=== PATIENT | female | born 1965 | race Caucasian/White ===

== ENCOUNTER 2020-03-31 12:11 | Emergency (ER) | payer BC, OTHER ==
[~2020-03-31] VITALS: Ht 157.5 cm; Wt 45.4 kg
--- NOTE | 2020-03-31 12:39 | NUR ---
C/O ABD PAIN -UMBILICAL AREA; VOMITING; DIARRHEA. SX STARTED YESTERDAY, WORSENED EARLY THIS AM. TOOK PEPTO-BISMOL:"BUT I THREW IT UP". DENIES FEVER, COUGH. INTACT SENSE OF SMELL & TASTE. DAUGHTER IN ROOM.
--- NOTE | 2020-03-31 12:48 | NUR ---
CHART MISSING TRIAGE BP.
[2020-03-31 12:56] LABS: BASOPHILS # (AUTO) 0.01 x10^3/uL (0-0.1); BASOPHILS % (AUTO) 0 % (0-1); EOSINOPHILS % (AUTO) 0 % (1-7); LYMPHOCYTES # (AUTO) 1.18 x10^3/uL (1-3.4); LYMPHOCYTES % (AUTO) 8 % (22-44); MD NO; MEAN CORPUSCULAR HEMOGLOBIN 31.8 pg (27.0-34.8); MEAN CORPUSCULAR HGB CONC 32.5 g/dL (32.4-35.8); MEAN CORPUSCULAR VOLUME 98.1 fL (80-100); MONOCYTES # (AUTO) 0.15 x10^3/uL (0.2-0.8); MONOCYTES % (AUTO) 1 % (2-9); NEUTROPHILS # (AUTO) 12.71 x10^3/uL (1.8-6.8); NEUTROPHILS % (AUTO) 90 % (42-75); PLATELET COUNT 234 x10^3/uL (130-400); RED BLOOD COUNT 3.96 x10^6/uL (3.82-5.3); RED CELL DISTRIBUTION WIDTH 13.3 % (9.6-15.2)
[2020-03-31] MEDS ORDERED: MAALOX/HYOSCYAMINE/LIDOCAINE 45 ML BTL PO ONE (13:00)
[2020-03-31] MEDS ORDERED: SODIUM CHLORIDE FLUSH 10ML SYR IVF ONE (13:00)
[2020-03-31] MEDS ORDERED: FAMOTIDINE 20 MG/2 ML IVPush ONE (13:00)
[2020-03-31] MEDS ORDERED: ONDANSETRON 2MG/ML, 2ML IVPush ONE (13:00)
[2020-03-31] MEDS ORDERED: SODIUM CHLORIDE 0.9% 1,000ML IVBOLUS ONE (13:00)
--- NOTE | 2020-03-31 13:00 | NUR ---
María Elena davis in [facility] - 03/31/20 at 1300 by [facility]IL[facility] PT REQUESTING ADMISSION TO BEHAVIORAL HEALTH; WILL NOTIFY ERP.
[2020-03-31 13:07] LABS: ALANINE AMINOTRANSFERASE 18 U/L (12-78); ALBUMIN 4.2 g/dL (3.4-5.0); ANION GAP 7 mmol/L (5-15); CALCIUM 8.8 mg/dL (8.5-10.1); CHLORIDE 111 mmol/L (98-107)
[2020-03-31 13:12] LABS: ALKALINE PHOSPHATASE 70 U/L (45-117); BILIRUBIN,TOTAL 0.5 mg/dL (0.2-1.0); CREATININE 0.65 mg/dL (0.55-1.02); TOTAL PROTEIN 7.8 g/dL (6.4-8.2)
--- NOTE | 2020-03-31 13:34 | NUR ---
U/S DONE. U/S [facility] STATES PT IS IN THE BR.
[2020-03-31] MEDS ORDERED: MAALOX/HYOSCYAMINE/LIDOCAINE 45 ML BTL ONE (13:44)
[2020-03-31] MEDS ORDERED: ONDANSETRON 2MG/ML, 2ML ONE (13:44)
[2020-03-31] MEDS ORDERED: FAMOTIDINE 20 MG/2 ML ONE (13:44)
--- NOTE | 2020-03-31 13:51 | NUR ---
ZOFRAN, PEPCID, GI COCKTAIL GIVEN PER EMAR. NS INFUSING W-O. BEAR WARMER PROVIDED. EMESIS BAG W/ PT. CALL LIGHT W/IN REACH, SIDE RAIL UP X2, DAUTHER IN ROOM.
--- NOTE | 2020-03-31 14:48 | NUR ---
PT AMBULATORY TO & FROM [place] [facility] W/OUT INCIDENT; GAIT STEADY. VOIDED SPECIMEN PROVIED; CLEAR YELLOW. PO CHALLENGE INTITATED W/ WATER.
--- NOTE | 2020-03-31 14:57 | NUR ---
PT ABLE TO KEEP WATER DOWN. ERP WILL BE NOTIFIED.
[2020-03-31 15:25] VITALS: BP 131/53
== END 2020-03-31 15:35 | disposition home or self-care (01) ==
LOC: ED 13:00
DX: R11.2 Nausea with vomiting, unspecified (principal); R19.7 Diarrhea, unspecified; R10.84 Generalized abdominal pain; R10.9 Unspecified abdominal pain
CPT/HCPCS: 36415; 76700; 80053; 83690; 84703; 85025; 96361; 96374; 96375; 99285; J2405; J3490; J7030

== ENCOUNTER 2020-04-03 03:21 | Emergency (ER) | payer BC ==
[~2020-04-03] VITALS: Ht 157.5 cm; Wt 44.7 kg
[2020-04-03] MEDS ORDERED: ONDANSETRON 2MG/ML, 2ML ONE (03:45)
[2020-04-03] MEDS ORDERED: FAMOTIDINE 20 MG/2 ML ONE (03:45)
[2020-04-03] MEDS ORDERED: ONDANSETRON 2MG/ML, 2ML IVPush ONE (04:00)
[2020-04-03] MEDS ORDERED: SODIUM CHLORIDE FLUSH 10ML SYR IVF ONE (04:00)
[2020-04-03] MEDS ORDERED: FAMOTIDINE 20 MG/2 ML IV ONE (04:00)
[2020-04-03] MEDS ORDERED: SODIUM CHLORIDE 0.9% 1,000ML IVBOLUS ONE (04:00)
[2020-04-03 04:12] LABS: BASOPHILS # (AUTO) 0.03 x10^3/uL (0-0.1); BASOPHILS % (AUTO) 0 % (0-1); EOSINOPHILS # (AUTO) 0.01 x10^3/uL (0-0.4); EOSINOPHILS % (AUTO) 0 % (1-7); LYMPHOCYTES # (AUTO) 2.05 x10^3/uL (1-3.4); LYMPHOCYTES % (AUTO) 15 % (22-44); MD NO; MEAN CORPUSCULAR HEMOGLOBIN 32.6 pg (27.0-34.8); MEAN CORPUSCULAR HGB CONC 33.5 g/dL (32.4-35.8); MEAN CORPUSCULAR VOLUME 97.1 fL (80-100); MEAN PLATELET VOLUME 8.7 fL (7.4-10.4); MONOCYTES # (AUTO) 0.64 x10^3/uL (0.2-0.8); MONOCYTES % (AUTO) 5 % (2-9); NEUTROPHILS # (AUTO) 10.94 x10^3/uL (1.8-6.8); NEUTROPHILS % (AUTO) 80 % (42-75); PLATELET COUNT 225 x10^3/uL (130-400); RED BLOOD COUNT 3.88 x10^6/uL (3.82-5.3)
[2020-04-03 04:24] LABS: ALBUMIN 4.1 g/dL (3.4-5.0); ANION GAP 7 mmol/L (5-15); CALCIUM 8.4 mg/dL (8.5-10.1); CHLORIDE 105 mmol/L (98-107)
[2020-04-03 04:27] LABS: ALANINE AMINOTRANSFERASE 27 U/L (12-78); ALKALINE PHOSPHATASE 70 U/L (45-117); BILIRUBIN,TOTAL 0.5 mg/dL (0.2-1.0); TOTAL PROTEIN 7.4 g/dL (6.4-8.2)
--- NOTE | 2020-04-03 05:20 | NUR ---
potassium requested from pharmacy
[2020-04-03] MEDS ORDERED: POTASSIUM CHLORIDE 10% 40 MEQ/30 ML UDC PO ONE (05:30)
[2020-04-03 05:43] LABS: MICROSCOPIC AUTO
[2020-04-03 06:04] VITALS: BP 152/65
[2020-04-03] MEDS ORDERED: METOCLOPRAMIDE 5 MG/ML, 2ML ONE (06:26)
[2020-04-03] MEDS ORDERED: METOCLOPRAMIDE 5 MG/ML, 2ML IVPush ONE (06:30)
--- NOTE | 2020-04-03 07:10 | NUR ---
REC REPORT PT RESTING AT THIS TIME NADN WAITING ON DISPO
== END 2020-04-03 07:49 | disposition home or self-care (01) ==
LOC: ED 04:02
DX: S39.012A Strain of muscle, fascia and tendon of lower back, initial encounter (principal); R10.13 Epigastric pain; R11.2 Nausea with vomiting, unspecified; R19.7 Diarrhea, unspecified; F17.210 Nicotine dependence, cigarettes, uncomplicated; X58.XXXA Exposure to other specified factors, initial encounter; Y93.89 Activity, other specified; Y92.89 Other specified places as the place of occurrence of the external cause; Y99.8 Other external cause status
CPT/HCPCS: 36415; 72110; 80053; 81001; 83690; 85025; 96374; 96375; 99284; J2405; J2765; J3490; J7030